=== PATIENT | female | born 1980 | race Caucasian/White ===

== ENCOUNTER 2017-02-03 15:23 | Emergency (ER) ==
[2017-02-03 15:39] VITALS: BP 127/80
--- NOTE | 2017-02-03 15:54 | PROVIDER DOCUMENTATION ---
HPI-EENT General - General Chief Complaint: Earache Stated Complaint: BILA EAR PAIN Time Seen by Provider: 02/03/17 15:43 Source: patient Allergies/Adverse Reactions: Patient Allergies Allergy/AdvReac Type Severity Reaction Status Date / Time acetaminophen [From Tylenol] Allergy liver Verified 02/03/17 15:54 damage doxycycline Allergy NAUSEA/VOMI Verified 02/03/17 15:54 TING nitrofurantoin Allergy NAUSEA/VOMI Verified 02/03/17 15:54 [From Macrobid] TING Penicillins Allergy RASH Verified 02/03/17 15:54 Sulfa (Sulfonamide Allergy ANAPHYLAXIS Verified 02/03/17 15:54 Antibiotics) [Sulfa(Sulfonamide Antibiotics)] Home Medications: Home Medication List Medication Instructions Recorded Confirmed Last Taken Type Clindamycin [Cleocin] 150 mg PO Q6HR #30 capsule 02/03/17 Unknown Rx Loratadine/Pse E.r. 24 Hr 1 each PO DAILY #20 tablet 02/03/17 Unknown Rx [Claritin-D 24 Hr] Methylprednisolone [Medrol Dosepak] 4 mg PO DIRECTED #1 package 02/03/17 Unknown Rx Mupirocin Ointment [Bactroban 1 applicatn TOP TID #1 tube 02/03/17 Unknown Rx Ointment] Tramadol [Ultram] 50 mg PO Q8HR #20 tablet 02/03/17 Unknown Rx - History of Present Illness-EENT General Nature of Presenting Problem: Pt is a 36 y/o F c chief complaint of bilateral ear pain x 3 days that is acute pain but she also has had chronic ear infections and possibly a eustacian tube dysfunction. Pt states she has not seen an ENT in years. With her ear aches, she has hearing loss. When she travels by airplane, her TMs have ruptured due to the pressure change. On arrival, pt is in minimal distress and afebrile. Additionally, she has a small, localized skin infx at the opening to her L nare. Review of Systems - Adult - REVIEW OF SYSTEMS - ADULT Constitutional: reports: no symptoms reported. denies: chills, fatique Eyes: reports: no symptoms reported. denies: blurred vision, double vision Ears, Nose, Mouth & Throat: reports: ear discharge, ear pain, hearing loss, tinnitus, sinus problem, nose pain. denies: loose teeth, hoarseness, throat swelling Cardiovascular: reports: no symptoms reported. denies: chest pain, heart murmur Respiratory: reports: no symptoms reported. denies: cough, shortness of breath Gastrointestinal: reports: no symptoms reported. denies: abdominal pain, nausea Genitourinary: reports: no symptoms reported. denies: dysuria, frequent UTI's Musculoskeletal: reports: no symptoms reported. denies: joint pain, joint swelling Integumentary: reports: no symptoms reported. denies: hives, itching, rash Neurological: reports: no symptoms reported. denies: numbness, paresthesia Psychiatric: reports: no symptoms reported. denies: anxiety, emotional problems Endocrine: reports: no symptoms reported. denies: cold intolerance, heat intolerance Hematologic/Lymphatic: reports: no symptoms reported. denies: blood clots, low blood count Allergic/Immunologic: reports: no symptoms reported. denies: allergic reactions , food allergy All Other Systems: Reviewed and Negative Past History - Adult - PAST MEDICAL HISTORY-ADULT Review of Records: reports: Old Records Reviewed, Nursing Assessment Review, Medications Reviewed, Social history reviewed & non-contributory. Major Childhood Illnesses: reports: denies history Cardiovascular: reports: HTN, hyperlipidemia Respiratory: reports: denies history Gastrointestinal: reports: GERD, other ("liver issues" due to medication. 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 Cannot have any meds c tylenol) Obstetrical/Gynecological: reports: denies history Genitourinary: reports: chronic UTI's Musculoskeletal: reports: denies history Neurological: reports: denies history Psychiatric: reports: anxiety, depression Endocrine/Immune: reports: denies history Other Conditions: reports: denies history - PRIOR SURGERIES/PROCEDURES Surgical/Procedure History: reports: tonsillectomy, other (adenoidectomy) - PRIOR HOSPITALIZATIONS Prior Hospitalizations: reports: for other non-related - IMMUNIZATION STATUS Childhood Immunizations: See Nurse Assessment Flu Vaccine: See Nurse Assessment - FAMILY HISTORY Family History: reviewed, not pertinent - SOCIAL HISTORY Smoking: denies Substance Use: none/never Alcohol Use Frequency: never Physical Exam- EENT - Physical Exam EENT Initial Vital Signs Reviewed: Yes General Appearance: appears well, alert, no apparent distress Eye Exam: bilateral eye: normal inspection, PERRL, EOMI Ear Exam: bilateral ear: tenderness, TM bulging, other (fluid level) Eyes,Nose,Lips,Neck: 1 - erythema and swelling Nasal Exam: sinus tenderness Throat Exam: normal mouth inspection, pharynx normal, dental tenderness Neck: non-tender, full range of motion, supple Respiratory: chest non-tender, lungs clear, normal breath sounds Cardiovascular: normal peripheral pulses, regular rate, rhythm, no edema Abdominal Exam: normal bowel sounds, non tender, soft Back Exam: normal inspection, no CVA tenderness, no vertebral tenderness Extremity: normal range of motion, non-tender, normal gait Integumentary: normal color, normal turgor, warm/dry Neurologic: grossly normal, no motor/sensory deficits Psych/Mental Status: normal mood/affect, normal thought content, normal thought process, oriented x 3 Progress - PLAN OF CARE/RESULTS Progress/Plan/Lab Results: Orders Category Date Time Status Dexamethasone [Decadron] Med 02/03/17 15:55 Discontinued 10 mg IM NOW ONE Vital Signs - 24 hr 02/03/17 15:37 Temperature 98.6 F Pulse Rate 93 H Respiratory 16 Rate Blood Pressure 127/80 O2 Sat by Pulse 100 Oximetry Departure - Departure Time of Disposition Order: 15:52 DIAGNOSIS: Ear ache, Fluid level behind tympanic membrane of both ears, Localized bacterial skin infection Disposition: HOME 01 Certified Medical Emergency: Emergent Condition: Stable Additional Instructions: ED Follow Up Instructions: You have been treated by a care provider in the Emergency Department. These instructions are being provided to you so you can have an understanding of how to care for yourself upon discharge. Upon discharge from the Emergency Department, you are responsible for making arrangements for follow-up care by a physician of your choice. Take all prescribed medications as directed. Return to the Emergency Department immediately for any new or worsening symptoms. You may call the Physician Referral phone number at [phone] to obtain a list of Physicians who are taking new patients. Prescriptions: Mupirocin Ointment [Bactroban Ointment] 1 applicatn TOP TID #1 tube Loratadine/Pse E.r. 24 Hr [Claritin-D 24 Hr] 1 each PO DAILY #20 tablet Clindamycin [Cleocin] 150 mg PO Q6HR #30 capsule Methylprednisolone [Medrol Dosepak] 4 mg PO DIRECTED #1 package Tramadol [Ultram] 50 mg PO Q8HR #20 tablet Referrals: Oscar Guardado MD [STAFF PHYSICIAN] - Forms: Return to School/Parent Work Attestation - Physician/ OSMEL Attestation Patient care was provided by Advanced Practice Provider:: Yes Advanced Practice Provider:: Marty Damon Advanced Practice Provider documentation review:: The Mid-level provider documentation, treatment plan and medical decision making was reviewed by the physician who agrees with all treatment and medical decision making by the MLP.
[2017-02-03] MEDS ORDERED: DECADRON IM ONE (15:55)
== END 2017-02-03 16:14 | disposition home or self-care (01) ==
LOC: ED 15:23
DX: H92.03 Otalgia, bilateral (principal); H73.893 Other specified disorders of tympanic membrane, bilateral; L08.9 Local infection of the skin and subcutaneous tissue, unspecified; B96.89 Other specified bacterial agents as the cause of diseases classified elsewhere; H91.90 Unspecified hearing loss, unspecified ear; H92.10 Otorrhea, unspecified ear; H93.19 Tinnitus, unspecified ear; J34.89 Other specified disorders of nose and nasal sinuses; L53.9 Erythematous condition, unspecified; R22.0 Localized swelling, mass and lump, head; I10 Essential (primary) hypertension; E78.5 Hyperlipidemia, unspecified; Z87.440 Personal history of urinary (tract) infections